=== PATIENT | female | born 1950 | race Caucasian/White ===

== ENCOUNTER 2017-01-23 10:52 | Emergency (ER) | payer OTHER ==
[~2017-01-23] VITALS: Ht 152.4 cm; Wt 62.5 kg
[~2017-01-23 10:52] MED LIST: BENAZEPRIL PO; LEVOTHYROXINE PO; METF500T9 PO
[2017-01-23 10:55] VITALS: Ht 152.4 cm; Wt 62.5 kg
[2017-01-23] MEDS ORDERED: ACET500C5 PO (11:21)
[2017-01-23] MEDS ORDERED: FLUT9.9S NASAL (11:21)
[2017-01-23] MEDS ORDERED: AZIT250T94 PO (11:21)
--- NOTE | 2017-01-23 11:25 | ERD ---
ER Documentation Chief Complaint Date/Time DATE: 01/23/17 TIME: 11:24 Chief Complaint sore throat x 1 week HPI 66-year-old female presents with congestion cough and sore throat for last week. She denies fevers. She has productive mucus. She has vomiting, chest pain, shortness breath, abdominal pain, neck stiffness, rashes. ROS All systems reviewed and are negative except as per history of present illness. Medications Home Meds Active Scripts Acetaminophen* (Tylophen*) 500 Mg Capsule, 1 CAP PO Q6H Y for PAIN AND OR ELEVATED TEMP, #15 CAP Prov:SHARONA LOPEZ MD 01/23/17 Fluticasone Propionate (Flonase Allergy Relief) 9.9 Ml [place].susp, 1 SPRAY NASAL DAILY, #1 BOTTLE TO EACH NOSTRIL Prov:SHARONA LOPEZ MD 01/23/17 Azithromycin* (Zithromax*) 250 Mg Tablet, 250 MG PO .ZPACK DIRECTED, #6 TAB TAKE 500 MG (2 TABS) THE FIRST DAY THEN 250 MG (1 TAB) DAYS 2-5 Prov:SHARONA LOPEZ MD 01/23/17 Reported Medications [Benazepril] No Conflict Check, 10 MG PO DAILY 09/17/13 [Levothyroxine] No Conflict Check, 0.15 MG PO DAILY 09/17/13 Metformin Hcl (Metformin Hcl ER) 500 Mg Tab.er.24h, 500 MG PO BID 09/17/13 Allergies Allergies: Coded Allergies: aspirin (Verified Allergy, Severe, 09/17/13) EYE REDNESS/SWELLING AND ITCHING codeine (Unverified Allergy, Severe, 09/17/13) EYE REDNESS/SWELLING AND ITCHING PMhx/Soc History of Surgery: No Anesthesia Reaction: No Hx Neurological Disorder: No Hx Respiratory Disorders: No Hx Cardiac Disorders: No Hx Psychiatric Problems: No Hx Miscellaneous Medical Probl: Yes (DM, Hypothyroid) Hx Alcohol Use: No Hx Substance Use: No Hx Tobacco Use: No Smoking Status: Never smoker Physical Exam Vitals Vital Signs Date Time Temp Pulse Resp B/P Pulse Ox O2 Delivery O2 Flow Rate FiO2 01/23/17 10:55 97.5 88 18 160/76 96 Physical Exam Const: [] Alert, [id number] Head: Atraumatic Eyes: Normal Conjunctiva ENT: Normal External Ears, Nose and Mouth. TMs normal. Oropharynx shows postnasal drip and erythema the oropharynx. Neck: Full range of motion..~ No meningismus. Resp: Clear to auscultation bilaterally. Patient has slight rhonchi and coarse cough without rales or retractions. Cardio: Regular rate and rhythm, no murmurs Abd: Soft, non tender, non distended. Normal bowel sounds Skin: No petechiae or rashes Back: No midline or flank tenderness Ext: No cyanosis, or edema Neur: Awake and alert Psych: Normal Mood and Affect Procedures/MDM Patient presents with URI symptoms and congestion and sore throat for last week. She will treated given the duration for sinusitis and bronchitis. Patient shows no evidence to suggest respiratory distress, hypoxemia, pneumonia , acute abdomen, PE, aortic disease. Patient is advised to follow-up with primary doctor this week or return to ER for new or worsening symptoms. Departure Diagnosis: Primary Impression: Sore throat Condition: Stable Patient Instructions: Sinusitis, Abx Tx Additional Instructions: Recheck for new or worsening symptoms or primary care doctor. SHARONA LOPEZ MD Jan 23, 2017 11:25
== END 2017-01-23 11:30 | disposition home or self-care (01) ==
LOC: FTE 10:52
DX: J02.9 Acute pharyngitis, unspecified (principal); E11.9 Type 2 diabetes mellitus without complications; E03.9 Hypothyroidism, unspecified
CPT/HCPCS: 99283

== ENCOUNTER 2018-04-23 03:09 | Emergency (ER) | END 2018-04-23 09:01 | disposition home or self-care (01) ==

== ENCOUNTER 2018-04-30 08:27 | Emergency (ER) | END 2018-04-30 09:41 | disposition home or self-care (01) ==